=== PATIENT | male | born 1990 | race Caucasian/White ===

== ENCOUNTER 2023-02-27 23:12 | Emergency (ER) | payer OTHER, SELFPAY ==
[2023-02-27 23:24] VITALS: BP 131/85; PULSE 59; RESP 18; TEMP 36.4; O2SAT 97; BMI 30.2
--- NOTE | 2023-02-28 02:23 | ED.SKABFB ---
HPI - Skin/Abscess/Foreign Bdy General Chief complaint: Skin/Abscess/Foreign Body Stated complaint: rash Time Seen by Provider: 02/28/23 02:17 Source: patient Mode of arrival: Ambulatory History of Present Illness HPI narrative: Otherwise healthy 32-year-old gentleman working for a [employer] noted today that he began developing a rash over the forearms underneath the gloves he was using to do dishes. He had been using a new set of gloves switched back to the old set of gloves but symptoms continued. Comes in for further evaluation. He does not complain of fever, cough, chills. He has not noticed prior skin irritation related to the soap, washing dishes or wearing gloves. He has been doing this same job with same exposures for the last 2 weeks. Related Data Allergies Allergy/AdvReac Type Severity Reaction Status Date / Time No Known Drug Allergies Allergy Verified 02/27/23 23:24 Review of Systems Review of Systems Narrative: Pertinent positive and negative findings as per HPI Patient History Social History Smoking Status: Never smoker Smoking Status: Never smoker Substance Use Type: does not use Exam Initial Vital Signs Initial Vital Signs: Vital Signs Temperature 97.5 F L 02/27/23 23:24 Pulse Rate 59 L 02/27/23 23:24 Respiratory Rate 18 02/27/23 23:24 Blood Pressure 131/85 02/27/23 23:24 Pulse Oximetry 97 02/27/23 23:24 Oxygen Delivery Method Room Air 02/27/23 23:24 General: Alert appropriate in no acute distress Respiratory: Able to speak in full sentences, no obvious respiratory distress Skin: No obvious rashes, warm and dry Neurologic: Grossly intact no obvious asymmetries or abnormalities Psych: appropriate insight and affect, cooperative Extremity: Mild contact dermatitis on the ventral surface of the forearms right greater than left. No skin breakdown, no suggestion of infection, no vesicular lesions Course Orders Ordered: Discontinued Medications Hydrocortisone (Hydrocortisone 1% Cream 28 Gm) 1 applic TOP NOW ONE Stop: 02/28/23 02:23 Vital Signs Vital signs: Vital Signs - 8 hr 02/27/23 23:24 Temperature 97.5 F L Pulse Rate 59 L Respiratory Rate 18 Blood Pressure 131/85 Pulse Oximetry 97 Oxygen Delivery Method Room Air MDM - Skin/Abscess/Foreign Bdy MDM Narrative Medical decision making narrative: CC: Forearm rash developing today. 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 Does not appear to be infection. No skin breakdown. Treatments: Discussion: 32-year-old gentleman with developing contact dermatitis likely related to a combination of moisture, soap and the current neoprene gloves. We will recommend that he find alternative gloves, try to keep the area dry. We will recommend topical steroid. 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 He is safe for discharge home Discharge Plan Departure Patient Disposition: Home Clinical Impression: Contact dermatitis Instructions: DI for Contact Dermatitis Activity Restrictions/Additional Instructions: Thank you for coming in today You have a contact dermatitis. This is an acute allergic reaction likely a combination of persistent moisture, the soap that you are using and the latex in the gloves that you are wearing. Using 1% topical hydrocortisone cream that you can find in a drug store or pharmacy (it typically is marketed as anti-itch cream). Using this 2 to 3 times a day will help with the rash that you have. To prevent it from getting worse or recurring, you need to try to keep your forearms clean and dry. You may need to switch gloves and may need to find some non latex gloves. If you find that you are getting worse or develop any new symptoms, please feel free to return to the emergency department for further evaluation. The physicians initial report for self-insured coverage is filled out (and NOT sent to [facility]) Stand Alone Forms: Patient Portal/API
[2023-02-28 03:15] VITALS: BP 124/68; PULSE 60; RESP 14; TEMP 36.3; O2SAT 100
== END 2023-02-28 03:10 | disposition home or self-care (01) ==
PROVIDERS: Emergency Provider Emergency Medicine
DX: L25.9 Unspecified contact dermatitis, unspecified cause (principal); Y99.0 Civilian activity done for income or pay
CPT/HCPCS: 99281